=== PATIENT | female | born 1935 | race African-American/Black ===

== ENCOUNTER 2017-02-07 09:51 | Emergency (ER) | payer MEDICAID, MEDICARE ==
[~2017-02-07] VITALS: Ht 152.4 cm; Wt 61.0 kg
[~2017-02-07 09:51] MED LIST: GLIPIZIDE; LIPITOR; MICARDIS; OMEPRAZOLE; PLAVIX
[2017-02-07 11:16] LABS: BASOPHILS % 1.3 % (0.0-2.0); EOSINOPHILS % 1.5 % (0.0-5.0); HEMATOCRIT. 39.5 % (36.0-48.0); HEMOGLOBIN. 12.7 g/dL (12.0-16.0); LYMPHOCYTES % 27.7 % (20.0-50.0); MEAN CORPUSCULAR VOLUME 92.9 fL (81.0-99.0); MEAN PLATELET VOLUME 9.4 fl (7.4-10.4); MONOCYTES % 9.1 % (2.0-8.0); NEUTROPHILS % 60.4 % (40.0-76.0); PLATELET 248 x1000/uL (130-400); RED BLOOD CELL COUNT 4.25 mill/uL (4.2-5.4); RED CELL DISTRIBUTION WIDTH 13.2 % (11.6-14.6)
[2017-02-07 11:24] LABS: PARTIAL THROMBOPLASTIN TIME 26.8 sec (23.4-31.0); PROTHROMBIN TIME 10.6 sec (9.4-11.6)
[2017-02-07 11:34] LABS: CARBON DIOXIDE 26 mEq/L (21-32); CHLORIDE 106 mEq/L (98-107); TROPONIN I < 0.02 ng/mL (0.00-0.04)
[2017-02-07] MEDS ORDERED: TRAMADOL 50MG TABLET PO ONE (14:15)
[2017-02-07 14:25] LABS: CLARITY URINE CLEAR (CLEAR); COLOR URINE YELLOW (YELLOW); KETONES URINE NEGATIVE (NEGATIVE); LEUKOCYTE ESTERASE URINE 2+ (NEGATIVE); NITRITE URINE NEGATIVE (NEGATIVE); OCCULT BLOOD URINE NEGATIVE (NEGATIVE); PH URINE 5.5 (4.5-8.0); PROTEIN URINE NEGATIVE (NEGATIVE); UROBILINOGEN URINE 0.2 E.U./dL (0.2-1.0)
[2017-02-07 16:04] VITALS: BP 142/66
== END 2017-02-07 16:14 | disposition home or self-care (01) ==
LOC: ER 11:20
DX: N39.0 Urinary tract infection, site not specified (principal); R51 Headache; E11.9 Type 2 diabetes mellitus without complications; I10 Essential (primary) hypertension; V89.2XXA Person injured in unspecified motor-vehicle accident, traffic, initial encounter; Y93.89 Activity, other specified; Y92.89 Other specified places as the place of occurrence of the external cause; Y99.8 Other external cause status
CPT/HCPCS: 36415; 70450; 72125; 74022; 80053; 81001; 82962; 83690; 83880; 84484; 85025; 85610; 85730; 93005; 99285

== ENCOUNTER 2017-05-12 02:42 | Inpatient (IN) | payer MEDICARE ==
[~2017-05-12] VITALS: Ht 152.4 cm; Wt 61.2 kg
[~2017-05-12 02:42] MED LIST changes: -PLAVIX; +PLAVIX PO
[2017-05-12] MEDS ORDERED: MAGNESIUM/ALUMINUM HYDROXIDE/SIMETHICONE 30ML UDC PO STA (03:42)
[2017-05-12] MEDS ORDERED: FAMOTIDINE 20MG/2ML VIAL IV STA (03:42)
[2017-05-12 04:21] LABS: HEMATOCRIT. 36.1 % (36.0-48.0); HEMOGLOBIN. 12.2 g/dL (12.0-16.0); LYMPHOCYTES % 13.6 % (20.0-50.0); MEAN CORPUSCULAR HEMOGLOBIN 31.5 pg (28.0-32.0); MEAN CORPUSCULAR VOLUME 93.1 fL (81.0-99.0); MEAN PLATELET VOLUME 9.6 fl (7.4-10.4); MONOCYTES % 8.4 % (2.0-8.0); PLATELET 195 x1000/uL (130-400); RED BLOOD CELL COUNT 3.88 mill/uL (4.2-5.4); RED CELL DISTRIBUTION WIDTH 13.4 % (11.6-14.6)
[2017-05-12 04:40] LABS: CHLORIDE 111 mEq/L (98-107)
[2017-05-12 05:14] LABS: CLARITY URINE CLEAR (CLEAR); COLOR URINE YELLOW (YELLOW); KETONES URINE NEGATIVE (NEGATIVE); LEUKOCYTE ESTERASE URINE 1+ (NEGATIVE); NITRITE URINE NEGATIVE (NEGATIVE); OCCULT BLOOD URINE NEGATIVE (NEGATIVE); PROTEIN URINE NEGATIVE (NEGATIVE); UROBILINOGEN URINE 0.2 E.U./dL (0.2-1.0)
[2017-05-12] MEDS ORDERED: SODIUM CHLORIDE 0.9% 1,000 ML IV SCH (05:31)
[2017-05-12 08:50] VITALS: BP 122/54
[2017-05-12] MEDS ORDERED: SPIR25TA4 PO (10:20)
[2017-05-12] MEDS ORDERED: LOSA50TA20 PO (10:20)
[2017-05-12] MEDS ORDERED: n PO (10:20)
[2017-05-12] MEDS ORDERED: NA PHOS,M-B/NA PHOS,DI-BA ENEMA 118ML PR PRN (11:15)
[2017-05-12] MEDS ORDERED: ONDANSETRON HCL 4MG/2ML VIAL IV PRN (11:15)
[2017-05-12] MEDS ORDERED: MAGNESIUM/ALUMINUM HYDROXIDE/SIMETHICONE 30ML UDC PO PRN (11:15)
[2017-05-12] MEDS ORDERED: ACETAMINOPHEN 650MG/20.3ML UDC GT PRN (11:15)
[2017-05-12] MEDS ORDERED: CLONIDINE 0.1MG TABLET PO PRN (11:15)
[2017-05-12] MEDS ORDERED: DIPHENHYDRAMINE 50MG/ML VIAL IV PRN (11:15)
[2017-05-12] MEDS ORDERED: HYDROCODONE/ACETAMINOPHEN 10/325MG TABLET PO PRN (11:15)
[2017-05-12] MEDS ORDERED: HYDROCODONE/ACETAMINOPHEN 5/325MG TABLET PO PRN (11:15)
[2017-05-12] MEDS ORDERED: GUAIFENESIN 200MG/10ML SUGAR FREE UDC PO PRN (11:15)
[2017-05-12] MEDS ORDERED: DOCUSATE SODIUM 100MG CAPSULE PO PRN (11:15)
[2017-05-12] MEDS ORDERED: IPRATROPIUM/ALBUTEROL 0.5-3(2.5)MG/3ML NEB INH PRN (11:15)
[2017-05-12] MEDS ORDERED: ACETAMINOPHEN 650MG SUPP PR PRN (11:15)
[2017-05-12] MEDS ORDERED: ACETAMINOPHEN 325MG TABLET PO PRN (11:15)
[2017-05-12] MEDS: SODIUM CHLORIDE 0.45% 1,000 ML IV SCH (11:57)
[2017-05-12 12:00] VITALS: BP 132/47
[2017-05-12] MEDS: SODIUM CHLORIDE 0.9% INJ 3ML FLUSH IVF SCH ×2 (14:00→22:00)
[2017-05-12 15:23] LABS: *AMPHETAMINES SCREEN URINE NEGATIVE (NEGATIVE); *BARBITURATES SCREEN URINE NEGATIVE (NEGATIVE); *BENZODIAZEPINES SCREEN URINE NEGATIVE (NEGATIVE); *COCAINE SCREEN URINE NEGATIVE (NEGATIVE); CANNABINOID URINE SCREEN NEGATIVE (NEGATIVE); METHADONE URINE SCREEN NEGATIVE (NEGATIVE); OPIATES URINE SCREEN NEGATIVE (NEGATIVE); PHENCYCLIDINE URINE SCREEN NEGATIVE (NEGATIVE)
[2017-05-12 16:00] VITALS: BP 129/57
[2017-05-12 16:22] LABS: CLARITY URINE CLEAR (CLEAR); COLOR URINE YELLOW (YELLOW); KETONES URINE NEGATIVE (NEGATIVE); LEUKOCYTE ESTERASE URINE 1+ (NEGATIVE); NITRITE URINE NEGATIVE (NEGATIVE); OCCULT BLOOD URINE NEGATIVE (NEGATIVE); PH URINE 5.5 (4.5-8.0); PROTEIN URINE NEGATIVE (NEGATIVE); SPECIFIC GRAVITY URINE 1.008 (1.005-1.030); UROBILINOGEN URINE 0.2 E.U./dL (0.2-1.0)
[2017-05-12] MEDS ORDERED: DEXTROSE 50% WATER 50ML SYRINGE IV PRN (16:45)
[2017-05-12] MEDS: BLOOD SUGAR DIAGNOSTIC STRIP TEST SCH ×2 (17:37→21:00)
[2017-05-12] MEDS: INSULIN LISPRO 100 UNITS/ML SUBCUT SCH ×2 (17:50→21:00)
[2017-05-12 20:00] VITALS: BP_SYST 114; BP_SYST 124; BP_DIAS 47; BP_DIAS 60
[2017-05-12] MEDS: LOSARTAN POTASSIUM 50 MG TABLET PO SCH (21:19)
[2017-05-12] MEDS: CLOPIDOGREL 75MG TABLET PO SCH (21:19)
[2017-05-13] VITALS (8 sets, daily range): BP systolic 110–128; BP diastolic 44–59
[2017-05-13] MEDS: SODIUM CHLORIDE 0.45% 1,000 ML IV SCH (04:10)
[2017-05-13] MEDS: SODIUM CHLORIDE 0.9% INJ 3ML FLUSH IVF SCH ×2 (06:00→17:31)
[2017-05-13 07:12] LABS: BASOPHILS % 1.1 % (0.0-2.0); EOSINOPHILS % 4.9 % (0.0-5.0); HEMATOCRIT. 36.2 % (36.0-48.0); HEMOGLOBIN. 12.2 g/dL (12.0-16.0); LYMPHOCYTES % 27.6 % (20.0-50.0); MEAN CORPUSCULAR VOLUME 91.9 fL (81.0-99.0); MEAN PLATELET VOLUME 9.7 fl (7.4-10.4); MONOCYTES % 10.7 % (2.0-8.0); NEUTROPHILS % 55.7 % (40.0-76.0); PLATELET 216 x1000/uL (130-400); RED BLOOD CELL COUNT 3.94 mill/uL (4.2-5.4); RED CELL DISTRIBUTION WIDTH 13.5 % (11.6-14.6)
[2017-05-13] MEDS: BLOOD SUGAR DIAGNOSTIC STRIP TEST SCH ×3 (07:20→17:20)
[2017-05-13 07:46] LABS: CHLORIDE 110 mEq/L (98-107)
[2017-05-13] MEDS: INSULIN LISPRO 100 UNITS/ML SUBCUT SCH ×3 (07:50→17:32)
[2017-05-13 07:51] LABS: HDL CHOLESTEROL 52 mg/dL (40-59); LDL CHOLESTEROL 68 mg/dL (5-100)
[2017-05-13] MEDS: CLOPIDOGREL 75MG TABLET PO SCH (09:13)
[2017-05-13] MEDS: LOSARTAN POTASSIUM 50 MG TABLET PO SCH (09:13)
[2017-05-13] MEDS ORDERED: PROM25TA13 PO (21:15)
== END 2017-05-13 21:35 | disposition home or self-care (01) | DRG 439 ==
LOC: ER 04:45 → EDBEDREQ 05:26 → EDBEDREQTM 05:50 → EDBEDREQ 05:50 → 6WST 07:09 → ENRESERV 07:09
PROVIDERS: ADMIT Family Medicine; ATTEND Family Medicine
DX: K85.90 Acute pancreatitis without necrosis or infection, unspecified (principal); E44.1 Mild protein-calorie malnutrition; E11.65 Type 2 diabetes mellitus with hyperglycemia; E86.0 Dehydration; E66.9 Obesity, unspecified; I10 Essential (primary) hypertension; Z79.899 Other long term (current) drug therapy; Z68.26 Body mass index [BMI] 26.0-26.9, adult
CPT/HCPCS: 36415; 71045; 74176; 76700; 80053; 80061; 80305; 81003; 82962; 83605; 83690; 84484; 85025; 85610; 93005; 96361; 96374; 99285; J1815; J3490; J7030

== ENCOUNTER 2017-06-17 23:24 | Inpatient (IN) | payer MEDICARE ==
[~2017-06-17] VITALS: Ht 172.7 cm; Wt 62.3 kg
[~2017-06-17 23:24] MED LIST changes: -GLIPIZIDE; -LIPITOR; +LOSA50TA20 PO; -MICARDIS; -OMEPRAZOLE; +PROM25TA13 PO; +SPIR25TA4 PO; +n PO
[2017-06-18] MEDS ORDERED: ONDANSETRON HCL 4MG/2ML VIAL IV STA (00:03)
[2017-06-18] MEDS ORDERED: CLOPIDOGREL 75MG TABLET PO ONE (00:15)
[2017-06-18] MEDS ORDERED: NITROGLYCERIN 0.4MG TABLET SL SL PRN (00:15)
[2017-06-18 00:26] LABS: BASOPHILS % 0.9 % (0.0-2.0); EOSINOPHILS % 3.7 % (0.0-5.0); HEMATOCRIT. 37.5 % (36.0-48.0); HEMOGLOBIN. 12.3 g/dL (12.0-16.0); LYMPHOCYTES % 28.6 % (20.0-50.0); MEAN CORPUSCULAR HEMOGLOBIN 30.4 pg (28.0-32.0); MEAN CORPUSCULAR VOLUME 92.9 fL (81.0-99.0); MEAN PLATELET VOLUME 9.8 fl (7.4-10.4); MONOCYTES % 10.7 % (2.0-8.0); NEUTROPHILS % 56.1 % (40.0-76.0); PLATELET 221 x1000/uL (130-400); RED BLOOD CELL COUNT 4.04 mill/uL (4.2-5.4); RED CELL DISTRIBUTION WIDTH 13.3 % (11.6-14.6)
[2017-06-18 00:29] LABS: CHLORIDE 106 mEq/L (98-107)
[2017-06-18 00:37] LABS: D-DIMER 0.5 mg/L FEU (<0.50); PARTIAL THROMBOPLASTIN TIME 27.3 sec (23.4-31.0); PROTHROMBIN TIME 10.2 sec (9.4-11.6)
[2017-06-18] MEDS ORDERED: MAGNESIUM/ALUMINUM HYDROXIDE/SIMETHICONE 30ML UDC PO ONE (01:15)
[2017-06-18] MEDS ORDERED: FAMOTIDINE 20MG/2ML VIAL IV ONE (01:15)
[2017-06-18 01:16] LABS: COLOR URINE YELLOW (YELLOW); KETONES URINE NEGATIVE (NEGATIVE); LEUKOCYTE ESTERASE URINE TRACE (NEGATIVE); NITRITE URINE NEGATIVE (NEGATIVE); OCCULT BLOOD URINE NEGATIVE (NEGATIVE); PH URINE 5.5 (4.5-8.0); PROTEIN URINE NEGATIVE (NEGATIVE); SPECIFIC GRAVITY URINE 1.009 (1.005-1.030); UROBILINOGEN URINE 0.2 E.U./dL (0.2-1.0)
[2017-06-18 01:44] LABS: CLARITY URINE CLEAR (CLEAR)
[2017-06-18] MEDS ORDERED: DIPHENHYDRAMINE 50MG/ML VIAL IV PRN (01:45)
[2017-06-18] MEDS ORDERED: GUAIFENESIN 200MG/10ML SUGAR FREE UDC PO PRN (01:45)
[2017-06-18] MEDS ORDERED: DOCUSATE SODIUM 100MG CAPSULE PO PRN (01:45)
[2017-06-18] MEDS ORDERED: CLONIDINE 0.1MG TABLET PO PRN (01:45)
[2017-06-18] MEDS ORDERED: IPRATROPIUM/ALBUTEROL 0.5-3(2.5)MG/3ML NEB INH PRN (01:45)
[2017-06-18] MEDS ORDERED: MAGNESIUM/ALUMINUM HYDROXIDE/SIMETHICONE 30ML UDC PO PRN (01:45)
[2017-06-18] MEDS ORDERED: HYDROCODONE/ACETAMINOPHEN 10/325MG TABLET PO PRN (01:45)
[2017-06-18] MEDS ORDERED: LORAZEPAM 0.5MG TABLET PO PRN (01:45)
[2017-06-18] MEDS ORDERED: HYDROCODONE/ACETAMINOPHEN 5/325MG TABLET PO PRN (01:45)
[2017-06-18] MEDS ORDERED: ACETAMINOPHEN 325MG TABLET PO PRN (01:45)
[2017-06-18 06:20] LABS: BASOPHILS % 1.1 % (0.0-2.0); EOSINOPHILS % 4.8 % (0.0-5.0); HEMATOCRIT. 38.3 % (36.0-48.0); HEMOGLOBIN. 12.8 g/dL (12.0-16.0); LYMPHOCYTES % 30.3 % (20.0-50.0); MEAN CORPUSCULAR VOLUME 92.9 fL (81.0-99.0); MEAN PLATELET VOLUME 9.5 fl (7.4-10.4); MONOCYTES % 12.2 % (2.0-8.0); NEUTROPHILS % 51.6 % (40.0-76.0); PLATELET 193 x1000/uL (130-400); RED BLOOD CELL COUNT 4.12 mill/uL (4.2-5.4); RED CELL DISTRIBUTION WIDTH 13.3 % (11.6-14.6)
[2017-06-18 06:26] LABS: CHLORIDE 109 mEq/L (98-107)
[2017-06-18] MEDS: DEXT 5%/0.45% NACL 1000ML 1,000 ML IV SCH ×2 (06:38→12:30)
[2017-06-18 07:02] LABS: LDL CHOLESTEROL 66 mg/dL (5-100)
[2017-06-18 07:03] LABS: HDL CHOLESTEROL 54 mg/dL (40-59)
[2017-06-18 07:05] LABS: T4 FREE 0.96 ng/dL (0.76-1.46)
[2017-06-18] MEDS ORDERED: ATOR10TA69 MT (08:52)
[2017-06-18 08:54] VITALS: BP 136/50
[2017-06-18 09:00] VITALS: BP 136/50
[2017-06-18] MEDS ORDERED: ONDANSETRON HCL 4MG/2ML VIAL IV PRN (09:00)
[2017-06-18] MEDS: LOSARTAN POTASSIUM 25 MG TABLET PO SCH (11:30)
[2017-06-18 12:00] VITALS: BP 95/43
[2017-06-18] MEDS: ENOXAPARIN 40MG/0.4ML SYR SUBCUT SCH (12:29)
[2017-06-18 16:00] VITALS: BP 110/70
[2017-06-18 20:00] VITALS: BP 105/43
[2017-06-18] MEDS: ATORVASTATIN CALCIUM 10MG TABLET PO SCH (21:09)
[2017-06-19] VITALS (7 sets, daily range): BP systolic 113–120; BP diastolic 45–75
[2017-06-19] MEDS: DEXT 5%/0.45% NACL 1000ML 1,000 ML IV SCH ×2 (06:34→10:15)
[2017-06-19 06:52] LABS: EOSINOPHILS % 4.3 % (0.0-5.0); HEMOGLOBIN. 12.4 g/dL (12.0-16.0); LYMPHOCYTES % 35.4 % (20.0-50.0); MEAN CORPUSCULAR VOLUME 92.7 fL (81.0-99.0); MEAN PLATELET VOLUME 9.8 fl (7.4-10.4); MONOCYTES % 12.5 % (2.0-8.0); NEUTROPHILS % 46.8 % (40.0-76.0); PLATELET 209 x1000/uL (130-400); RED BLOOD CELL COUNT 3.99 mill/uL (4.2-5.4); RED CELL DISTRIBUTION WIDTH 13.3 % (11.6-14.6)
[2017-06-19 07:31] LABS: CHLORIDE 109 mEq/L (98-107)
[2017-06-19 07:40] LABS: AMYLASE 158 IU/L (25-115)
[2017-06-19] MEDS: LOSARTAN POTASSIUM 25 MG TABLET PO SCH (10:12)
[2017-06-19] MEDS: ENOXAPARIN 40MG/0.4ML SYR SUBCUT SCH (10:13)
[2017-06-19] MEDS: ATORVASTATIN CALCIUM 10MG TABLET PO SCH (20:59)
[2017-06-20 04:00] VITALS: BP 111/50
[2017-06-20] MEDS: DEXT 5%/0.45% NACL 1000ML 1,000 ML IV SCH (05:04)
[2017-06-20 07:24] LABS: EOSINOPHILS % 3.9 % (0.0-5.0); HEMOGLOBIN. 12.1 g/dL (12.0-16.0); LYMPHOCYTES % 31.3 % (20.0-50.0); MEAN CORPUSCULAR HEMOGLOBIN 30.4 pg (28.0-32.0); MEAN PLATELET VOLUME 9.6 fl (7.4-10.4); MONOCYTES % 11.5 % (2.0-8.0); NEUTROPHILS % 52.3 % (40.0-76.0); PLATELET 208 x1000/uL (130-400); RED BLOOD CELL COUNT 3.98 mill/uL (4.2-5.4); RED CELL DISTRIBUTION WIDTH 13.1 % (11.6-14.6)
[2017-06-20 07:56] LABS: CHLORIDE 108 mEq/L (98-107)
[2017-06-20 08:00] VITALS: BP 113/54
[2017-06-20 08:14] LABS: AMYLASE 161 IU/L (25-115)
[2017-06-20] MEDS: ENOXAPARIN 40MG/0.4ML SYR SUBCUT SCH (09:37)
[2017-06-20] MEDS: LOSARTAN POTASSIUM 25 MG TABLET PO SCH (09:37)
[2017-06-20 12:00] VITALS: BP 104/45
[2017-06-20 13:45] VITALS: BP 104/45
== END 2017-06-20 15:10 | disposition home or self-care (01) | DRG 302 ==
LOC: ER 23:24 → 5WST 06-18 01:22 → EDBEDREQ 06-18 01:27 → ENRESERV 06-18 07:03
PROVIDERS: ADMIT Family Medicine Adult Medicine; ATTEND Family Medicine Adult Medicine
DX: I25.119 Atherosclerotic heart disease of native coronary artery with unspecified angina pectoris (principal); K85.90 Acute pancreatitis without necrosis or infection, unspecified; I42.9 Cardiomyopathy, unspecified; I50.20 Unspecified systolic (congestive) heart failure; I11.0 Hypertensive heart disease with heart failure; E03.9 Hypothyroidism, unspecified; E11.9 Type 2 diabetes mellitus without complications; E78.5 Hyperlipidemia, unspecified; I25.2 Old myocardial infarction; Z79.02 Long term (current) use of antithrombotics/antiplatelets; Z82.49 Family history of ischemic heart disease and other diseases of the circulatory system; Z86.73 Personal history of transient ischemic attack (TIA), and cerebral infarction without residual deficits; Z87.891 Personal history of nicotine dependence; Z95.5 Presence of coronary angioplasty implant and graft; Z79.899 Other long term (current) drug therapy
CPT/HCPCS: 36415; 71045; 74181; 80048; 80053; 80061; 80076; 81003; 82150; 82787; 83036; 83690; 83735; 83880; 84439; 84443; 84481; 84484; 85025; 85379; 85610; 85730; 93005; 93306; 96374; 97162; 99285; J1650; J2405; J3490

== ENCOUNTER 2018-02-14 09:22 | Inpatient (IN) | payer MEDICARE ==
[2018-02-14] VITALS (17 sets, daily range): BP systolic 98–161; BP diastolic 30–87
[~2018-02-14] VITALS: Ht 154.9 cm; Wt 59.0 kg
[~2018-02-14 09:22] MED LIST changes: +ATOR10TA69 MT; -PROM25TA13 PO; -SPIR25TA4 PO; +SPIR25TA6 PO; -n PO
[2018-02-14] MEDS ORDERED: LIDOCAINE HCL 1% 20ML VIAL (Pyxis) INJ ONE (11:17)
[2018-02-14] MEDS ORDERED: IODIXANOL 320MG/ML 100 ML BOTTLE IV ONE ×2 (11:18→11:52)
[2018-02-14] MEDS ORDERED: FENTANYL CITRATE/PF 50MCG/ML 2ML VIAL ONE (11:22)
[2018-02-14] MEDS ORDERED: MIDAZOLAM HCL 2 MG/2 ML VIAL ONE (11:22)
[2018-02-14] MEDS ORDERED: IOHEXOL-300 100 ML BOTTLE ONE (11:43)
[2018-02-14] MEDS ORDERED: CLOP75TA33 PO (11:46)
[2018-02-14] MEDS ORDERED: ATOR10TA69 PO (11:46)
[2018-02-14] MEDS ORDERED: SITA1TAB6 PO (11:46)
[2018-02-14] MEDS ORDERED: CARV3.1242 PO (11:46)
[2018-02-14] MEDS ORDERED: DIGO125T82 PO (11:46)
[2018-02-14] MEDS ORDERED: INSU100I28 SQ (11:46)
[2018-02-14] MEDS ORDERED: CLOPIDOGREL 75MG TABLET ONE (12:22)
[2018-02-14] MEDS ORDERED: ATROPINE SULFATE 1MG/10ML SYR IV PRN (13:30)
[2018-02-14] MEDS ORDERED: ACETAMINOPHEN 325MG TABLET PO PRN ×2 (13:30→13:45)
[2018-02-14] MEDS ORDERED: ONDANSETRON HCL 4MG/2ML INJ IV PRN (13:30)
[2018-02-14] MEDS ORDERED: DEXTROSE 50% WATER 50ML SYRINGE IV PRN (13:45)
[2018-02-14] MEDS ORDERED: HYDROCODONE/ACETAMINOPHEN 5/325MG TABLET PO PRN (13:45)
[2018-02-14] MEDS ORDERED: CLONIDINE 0.1MG TABLET PO PRN (13:45)
[2018-02-14] MEDS ORDERED: NITROGLYCERIN 50MCG/ML 10ML VIAL (CATH LAB) IV ONE (14:58)
[2018-02-14] MEDS ORDERED: HEPARIN SODIUM 1,000 UNIT/1ML VIAL IV ONE (15:37)
[2018-02-14] MEDS: BLOOD SUGAR DIAGNOSTIC STRIP TEST SCH ×2 (16:36→21:39)
[2018-02-14] MEDS: INSULIN LISPRO 100 UNITS/ML SUBCUT SCH ×3 (16:53→21:47)
[2018-02-14] MEDS ORDERED: DIGOXIN 125MCG TABLET PO SCH (18:00)
[2018-02-14 18:44] LABS: HEMATOCRIT 39.4 % (36.0-48.0); HEMOGLOBIN 12.7 g/dL (12.0-16.0); MEAN CORPUSCULAR HEMOGLOBIN 30.2 pg (28.0-32.0); MEAN CORPUSCULAR VOLUME 93.5 fL (81.0-99.0); PLATELET 201 x1000/uL (130-400); RED BLOOD CELL COUNT 4.22 mill/uL (4.2-5.4); RED CELL DISTRIBUTION WIDTH 13.5 % (11.6-14.6)
[2018-02-14 18:54] LABS: CHLORIDE 105 mEq/L (98-107)
[2018-02-14 19:30] LABS: DIGOXIN 0.1 ng/mL (0.9-2.0)
[2018-02-14] MEDS ORDERED: ATORVASTATIN CALCIUM 20MG TABLET PO SCH (21:00)
[2018-02-14] MEDS: CARVEDILOL 3.125 MG TABLET PO SCH (21:39)
[2018-02-15] VITALS (8 sets, daily range): BP systolic 111–137; BP diastolic 41–93
[2018-02-15] MEDS: BLOOD SUGAR DIAGNOSTIC STRIP TEST SCH ×2 (06:35→11:58)
[2018-02-15 07:09] LABS: CHLORIDE 106 mEq/L (98-107)
[2018-02-15 07:16] LABS: BASOPHILS % 1.1 % (0.0-2.0); EOSINOPHILS % 1.6 % (0.0-5.0); HEMATOCRIT. 36.6 % (36.0-48.0); LDL CHOLESTEROL 95 mg/dL (5-100); LYMPHOCYTES % 24.6 % (20.0-50.0); MEAN CORPUSCULAR HEMOGLOBIN 30.3 pg (28.0-32.0); MEAN CORPUSCULAR VOLUME 92.3 fL (81.0-99.0); MEAN PLATELET VOLUME 10.2 fl (7.4-10.4); MONOCYTES % 7.5 % (2.0-8.0); NEUTROPHILS % 65.2 % (40.0-76.0); PLATELET 222 x1000/uL (130-400); RED BLOOD CELL COUNT 3.97 mill/uL (4.2-5.4); RED CELL DISTRIBUTION WIDTH 13.1 % (11.6-14.6)
[2018-02-15 07:17] LABS: HDL CHOLESTEROL 55 mg/dL (40-59)
[2018-02-15 07:29] LABS: DIGOXIN 0.3 ng/mL (0.9-2.0)
[2018-02-15] MEDS: INSULIN LISPRO 100 UNITS/ML SUBCUT SCH ×2 (08:09→12:26)
[2018-02-15] MEDS: CARVEDILOL 3.125 MG TABLET PO SCH (08:10)
[2018-02-15] MEDS ORDERED: ASPIRIN 81MG EC TABLET PO SCH (09:00)
[2018-02-15] MEDS ORDERED: CLOPIDOGREL 75MG TABLET PO SCH (09:00)
== END 2018-02-15 14:06 | disposition home or self-care (01) | DRG 246 ==
LOC: CCL 09:22 → 3WST 09:23
PROVIDERS: ADMIT Specialist; ATTEND Specialist
PROC: 4A023N7 Measurement of Cardiac Sampling and Pressure, Left Heart, Percutaneous Approach (ICD-10-PCS; principal; 2018-02-14)
PROC: 027135Z Dilation of Coronary Artery, Two Arteries with Two Drug-eluting Intraluminal Devices, Percutaneous Approach (ICD-10-PCS; 2018-02-14)
PROC: B2111ZZ Fluoroscopy of Multiple Coronary Arteries using Low Osmolar Contrast (ICD-10-PCS; 2018-02-14)
PROC: B2151ZZ Fluoroscopy of Left Heart using Low Osmolar Contrast (ICD-10-PCS; 2018-02-14)
PROC: B41F1ZZ Fluoroscopy of Right Lower Extremity Arteries using Low Osmolar Contrast (ICD-10-PCS; 2018-02-14)
DX: I25.10 Atherosclerotic heart disease of native coronary artery without angina pectoris (principal); I50.43 Acute on chronic combined systolic (congestive) and diastolic (congestive) heart failure; I42.9 Cardiomyopathy, unspecified; E11.9 Type 2 diabetes mellitus without complications; E78.00 Pure hypercholesterolemia, unspecified; I11.0 Hypertensive heart disease with heart failure; Z95.5 Presence of coronary angioplasty implant and graft
CPT/HCPCS: 36415; 80048; 80061; 80162; 82962; 83036; 83735; 85027; 85347; 92928; 92929; 93005; 93458; C1760; C1769; C1874; C1887; J1644; J1815; J2250; J3010; J3490; Q9967

== ENCOUNTER 2018-05-01 14:22 | Inpatient (IN) | payer MEDICARE ==
[~2018-05-01] VITALS: Ht 154.9 cm; Wt 69.0 kg
[~2018-05-01 14:22] MED LIST changes: -ATOR10TA69 MT; +ATOR10TA69 PO; +CARV3.1242 PO; +CLOP75TA33 PO; +DIGO125T82 PO; +INSU100I28 SQ; -LOSA50TA20 PO; -PLAVIX PO; +SITA1TAB6 PO; -SPIR25TA6 PO
[2018-05-01 17:41] LABS: BASOPHILS % 0.8 % (0.0-2.0); EOSINOPHILS % 3.6 % (0.0-5.0); HEMATOCRIT. 43.2 % (36.0-48.0); HEMOGLOBIN. 14.1 g/dL (12.0-16.0); MEAN CORPUSCULAR HEMOGLOBIN 31.2 pg (28.0-32.0); MEAN CORPUSCULAR VOLUME 95.4 fL (81.0-99.0); MEAN PLATELET VOLUME 9.9 fl (7.4-10.4); MONOCYTES % 10.2 % (2.0-8.0); NEUTROPHILS % 49.4 % (40.0-76.0); PLATELET 186 x1000/uL (130-400); RED BLOOD CELL COUNT 4.52 mill/uL (4.2-5.4)
[2018-05-01 17:47] LABS: CHLORIDE 110 mEq/L (98-107)
[2018-05-01] MEDS ORDERED: DEXTROSE 50% WATER 50ML SYRINGE IV ONE (18:45)
[2018-05-01] MEDS ORDERED: ASPIRIN 81MG TABLET PO ONE (18:45)
[2018-05-01] MEDS ORDERED: INSULIN REGULAR (HUMULIN R) 300UNITS/3ML IV ONE (18:45)
[2018-05-01] MEDS: NITROGLYCERIN 0.4MG TABLET SL SL PRN ×2 (19:05→19:37)
[2018-05-01 20:11] LABS: PROTHROMBIN TIME 10.4 sec (9.1-11.1)
[2018-05-01] MEDS ORDERED: CARV6.2548 MT (23:58)
[2018-05-02] VITALS (7 sets, daily range): BP systolic 111–141; BP diastolic 46–68
[2018-05-02] MEDS ORDERED: METF-414 MT
[2018-05-02] MEDS ORDERED: SACU1TAB7 MT (00:01)
[2018-05-02] MEDS ORDERED: DEXTROSE 50% WATER 50ML SYRINGE IV PRN (00:45)
[2018-05-02] MEDS ORDERED: NITROGLYCERIN 0.4MG TABLET SL SL PRN (01:00)
[2018-05-02] MEDS: BLOOD SUGAR DIAGNOSTIC STRIP TEST SCH ×4 (05:45→21:00)
[2018-05-02] MEDS: INSULIN LISPRO 100 UNITS/ML SUBCUT SCH ×4 (06:20→21:33)
[2018-05-02 08:13] LABS: CHLORIDE 107 mEq/L (98-107)
[2018-05-02] MEDS: ASPIRIN 81MG EC TABLET PO SCH (09:59)
[2018-05-02] MEDS: CARVEDILOL 6.25 MG TABLET PO SCH ×2 (09:59→21:31)
[2018-05-02] MEDS: ENOXAPARIN 40MG/0.4ML SYR SUBCUT SCH (10:00)
[2018-05-02] MEDS: CLOPIDOGREL 75MG TABLET PO SCH (10:00)
[2018-05-02] MEDS: MAGNESIUM OXIDE 400MG TABLET PO SCH (10:00)
[2018-05-02] MEDS ORDERED: ACETAMINOPHEN 325MG TABLET PO PRN (14:15)
[2018-05-02] MEDS ORDERED: ATORVASTATIN CALCIUM 10MG TABLET PO SCH (21:00)
[2018-05-03] VITALS: BP 118/57
[2018-05-03 04:00] VITALS: BP 129/57
[2018-05-03 06:34] LABS: BASOPHILS % 0.6 % (0.0-2.0); EOSINOPHILS % 3.1 % (0.0-5.0); HEMATOCRIT. 37.5 % (36.0-48.0); HEMOGLOBIN. 12.2 g/dL (12.0-16.0); LYMPHOCYTES % 37.2 % (20.0-50.0); MEAN CORPUSCULAR HEMOGLOBIN 30.8 pg (28.0-32.0); MEAN CORPUSCULAR VOLUME 94.3 fL (81.0-99.0); MEAN PLATELET VOLUME 9.9 fl (7.4-10.4); NEUTROPHILS % 47.1 % (40.0-76.0); PLATELET 222 x1000/uL (130-400); RED BLOOD CELL COUNT 3.98 mill/uL (4.2-5.4); RED CELL DISTRIBUTION WIDTH 13.2 % (11.6-14.6)
[2018-05-03] MEDS: INSULIN LISPRO 100 UNITS/ML SUBCUT SCH ×3 (06:39→17:31)
[2018-05-03] MEDS: BLOOD SUGAR DIAGNOSTIC STRIP TEST SCH ×3 (06:39→16:53)
[2018-05-03 07:22] LABS: CHLORIDE 109 mEq/L (98-107)
[2018-05-03 08:00] VITALS: BP 119/53
[2018-05-03] MEDS: CARVEDILOL 6.25 MG TABLET PO SCH (09:50)
[2018-05-03] MEDS: CLOPIDOGREL 75MG TABLET PO SCH (09:50)
[2018-05-03] MEDS: ASPIRIN 81MG EC TABLET PO SCH (09:50)
[2018-05-03] MEDS: ENOXAPARIN 40MG/0.4ML SYR SUBCUT SCH (09:50)
[2018-05-03] MEDS: MAGNESIUM OXIDE 400MG TABLET PO SCH (09:50)
[2018-05-03 12:00] VITALS: BP 123/49
[2018-05-03 15:20] LABS: AMYLASE 119 IU/L (25-115)
[2018-05-03 16:00] VITALS: BP 123/61
[2018-05-03 17:44] VITALS: BP 123/61
== END 2018-05-03 18:25 | disposition home or self-care (01) | DRG 311 ==
LOC: ER 14:22 → 5WST 20:59 → EDBEDREQTM 21:02 → EDBEDREQ 21:02 → ENRESERV 21:50
PROVIDERS: ADMIT Internal Medicine; ATTEND Internal Medicine
DX: I24.9 Acute ischemic heart disease, unspecified (principal); I50.22 Chronic systolic (congestive) heart failure; E11.65 Type 2 diabetes mellitus with hyperglycemia; E78.00 Pure hypercholesterolemia, unspecified; E78.5 Hyperlipidemia, unspecified; E87.5 Hyperkalemia; I11.0 Hypertensive heart disease with heart failure; I25.110 Atherosclerotic heart disease of native coronary artery with unstable angina pectoris; I49.1 Atrial premature depolarization; K21.9 Gastro-esophageal reflux disease without esophagitis; Z82.49 Family history of ischemic heart disease and other diseases of the circulatory system; Z87.891 Personal history of nicotine dependence; Z95.5 Presence of coronary angioplasty implant and graft; Z79.84 Long term (current) use of oral hypoglycemic drugs; Z79.4 Long term (current) use of insulin; Z79.899 Other long term (current) drug therapy; I25.2 Old myocardial infarction
CPT/HCPCS: 36415; 71045; 80048; 82150; 82962; 83735; 83880; 84443; 84484; 93005; 93306; 96374; 99285; J1650; J1815

== ENCOUNTER → 2019-02-20 | Outpatient (CLI) | payer MEDICARE ==
[~2019-02-20] MED LIST changes: -CARV3.1242 PO; +CARV6.2548 MT; -DIGO125T82 PO; +METF-414 MT; +SACU1TAB7 MT; -SITA1TAB6 PO
== END | disposition home or self-care (01) ==
LOC: RAD 12:47
PROVIDERS: ATTEND Neurological Surgery
DX: I67.82 Cerebral ischemia (principal); G31.89 Other specified degenerative diseases of nervous system
CPT/HCPCS: 70551

== ENCOUNTER 2019-04-21 10:09 | Inpatient (IN) | payer MEDICARE ==
[~2019-04-21] VITALS: Ht 152.4 cm; Wt 61.2 kg
[2019-04-21 13:48] LABS: CHLORIDE 110 mEq/L (98-107)
[2019-04-21 13:52] LABS: BASOPHILS % 0.8 % (0.0-2.0); HEMATOCRIT. 41.4 % (36.0-48.0); HEMOGLOBIN. 13.8 g/dL (12.0-16.0); LYMPHOCYTES % 33.1 % (20.0-50.0); MEAN CORPUSCULAR HEMOGLOBIN 31.8 pg (28.0-32.0); MEAN CORPUSCULAR VOLUME 95.4 fL (81.0-99.0); MEAN PLATELET VOLUME 9.7 fl (7.4-10.4); MONOCYTES % 10.4 % (2.0-8.0); NEUTROPHILS % 52.7 % (40.0-76.0); PLATELET 228 x1000/uL (130-400); RED BLOOD CELL COUNT 4.34 mill/uL (4.2-5.4); RED CELL DISTRIBUTION WIDTH 13.6 % (11.6-14.6)
[2019-04-21] MEDS ORDERED: CARVEDILOL 6.25 MG TABLET PO SCH (17:00)
[2019-04-21] MEDS ORDERED: ACETAMINOPHEN 325MG TABLET PO PRN (17:15)
[2019-04-21] MEDS ORDERED: ASPIRIN 325MG EC TABLET PO ONE (17:15)
[2019-04-21] MEDS ORDERED: ATORVASTATIN CALCIUM 40MG TABLET PO NR (17:15)
[2019-04-21] MEDS ORDERED: DEXTROSE 50% WATER 50ML SYRINGE IV PRN (17:15)
[2019-04-21] MEDS ORDERED: CLONIDINE 0.1MG TABLET PO PRN (17:15)
[2019-04-21] MEDS ORDERED: NITROGLYCERIN 0.4MG TABLET SL SL PRN (17:15)
[2019-04-21] MEDS ORDERED: ONDANSETRON HCL 4MG/2ML INJ IV PRN (17:15)
[2019-04-21] MEDS ORDERED: HYDRALAZINE 20MG/ML VIAL IV PRN (17:15)
[2019-04-21] MEDS: BLOOD SUGAR DIAGNOSTIC STRIP TEST SCH ×2 (18:58→21:00)
[2019-04-21] MEDS: INSULIN LISPRO 100 UNITS/ML SUBCUT SCH ×2 (19:00→21:00)
[2019-04-21] MEDS ORDERED: INSULIN GLARGINE UD 100 UNITS/ML SYR SUBCUT SCH (22:00)
[2019-04-21 22:15] VITALS: BP 137/68
[2019-04-21] MEDS: HEPARIN 5000 UNITS/ML VIAL SUBCUT SCH (23:08)
[2019-04-21 23:15] VITALS: BP 137/68
[2019-04-22] VITALS: BP 142/50
[2019-04-22] MEDS: SACUBITRIL/VALSARTAN 49MG/51MG TABLET PO SCH ×3 (00:09→23:46)
[2019-04-22] MEDS: INSULIN GLARGINE UD 100 UNITS/ML SYR SUBCUT SCH ×3 (00:10→21:46)
[2019-04-22 04:00] VITALS: BP 111/48
[2019-04-22 05:42] LABS: BASOPHILS % 0.9 % (0.0-2.0); HEMATOCRIT. 35.9 % (36.0-48.0); LYMPHOCYTES % 34.9 % (20.0-50.0); MEAN CORPUSCULAR HEMOGLOBIN 31.4 pg (28.0-32.0); MEAN CORPUSCULAR VOLUME 94.2 fL (81.0-99.0); MEAN PLATELET VOLUME 9.8 fl (7.4-10.4); MONOCYTES % 10.9 % (2.0-8.0); NEUTROPHILS % 49.3 % (40.0-76.0); PLATELET 203 x1000/uL (130-400); RED BLOOD CELL COUNT 3.82 mill/uL (4.2-5.4); RED CELL DISTRIBUTION WIDTH 13.4 % (11.6-14.6)
[2019-04-22 05:57] LABS: CHLORIDE 108 mEq/L (98-107)
[2019-04-22 06:13] LABS: LDL CHOLESTEROL 74 mg/dL (5-100)
[2019-04-22 06:14] LABS: HDL CHOLESTEROL 48 mg/dL (40-59)
[2019-04-22] MEDS: BLOOD SUGAR DIAGNOSTIC STRIP TEST SCH ×4 (06:46→21:00)
[2019-04-22] MEDS: INSULIN LISPRO 100 UNITS/ML SUBCUT SCH ×4 (07:49→21:46)
[2019-04-22 08:00] VITALS: BP 145/63
[2019-04-22] MEDS: CLOPIDOGREL 75MG TABLET PO SCH (08:12)
[2019-04-22] MEDS: HEPARIN 5000 UNITS/ML VIAL SUBCUT SCH ×2 (08:13→21:42)
[2019-04-22] MEDS: CARVEDILOL 6.25 MG TABLET PO SCH ×2 (08:13→21:50)
[2019-04-22] MEDS ORDERED: INFLUENZA VIRUS VACCINE(AFLURIA) 0.5ML SYR IM ONE (10:00)
[2019-04-22] MEDS ORDERED: REGADENOSON 0.4 MG/5 ML IV NR (10:30)
[2019-04-22 12:00] VITALS: BP 126/58
[2019-04-22] MEDS ORDERED: REGADENOSON 0.4 MG/5 ML IV ONE (14:49)
[2019-04-22 16:00] VITALS: BP 135/51
[2019-04-22 20:00] VITALS: BP 118/55
[2019-04-22] MEDS ORDERED: ATORVASTATIN CALCIUM 10MG TABLET PO SCH (23:00)
[2019-04-23] VITALS: BP 132/48
[2019-04-23 04:00] VITALS: BP 124/50
[2019-04-23 05:52] LABS: BASOPHILS % 0.9 % (0.0-2.0); EOSINOPHILS % 2.7 % (0.0-5.0); HEMATOCRIT. 37.4 % (36.0-48.0); HEMOGLOBIN. 12.5 g/dL (12.0-16.0); LYMPHOCYTES % 26.3 % (20.0-50.0); MEAN CORPUSCULAR HEMOGLOBIN 31.4 pg (28.0-32.0); MEAN CORPUSCULAR VOLUME 93.7 fL (81.0-99.0); MEAN PLATELET VOLUME 9.9 fl (7.4-10.4); MONOCYTES % 9.6 % (2.0-8.0); NEUTROPHILS % 60.5 % (40.0-76.0); PLATELET 219 x1000/uL (130-400); RED BLOOD CELL COUNT 3.99 mill/uL (4.2-5.4); RED CELL DISTRIBUTION WIDTH 13.5 % (11.6-14.6)
[2019-04-23 05:59] LABS: CHLORIDE 108 mEq/L (98-107)
[2019-04-23] MEDS: BLOOD SUGAR DIAGNOSTIC STRIP TEST SCH ×2 (06:44→12:44)
[2019-04-23] MEDS: INSULIN LISPRO 100 UNITS/ML SUBCUT SCH ×2 (06:45→12:56)
[2019-04-23 08:00] VITALS: BP 124/57
[2019-04-23] MEDS: CARVEDILOL 6.25 MG TABLET PO SCH (08:12)
[2019-04-23] MEDS: CLOPIDOGREL 75MG TABLET PO SCH (08:12)
[2019-04-23] MEDS: SACUBITRIL/VALSARTAN 49MG/51MG TABLET PO SCH (08:13)
[2019-04-23] MEDS: HEPARIN 5000 UNITS/ML VIAL SUBCUT SCH (08:13)
[2019-04-23] MEDS: INSULIN GLARGINE UD 100 UNITS/ML SYR SUBCUT SCH (10:00)
[2019-04-23 12:00] VITALS: BP 115/47
[2019-04-23 14:03] VITALS: BP 115/47
== END 2019-04-23 14:41 | disposition home or self-care (01) | DRG 206 ==
LOC: ER 10:09 → 6WST 16:59 → ENRESERV 20:38
PROVIDERS: ADMIT Internal Medicine; ATTEND Internal Medicine
DX: M94.0 Chondrocostal junction syndrome [Tietze] (principal); I42.9 Cardiomyopathy, unspecified; I25.10 Atherosclerotic heart disease of native coronary artery without angina pectoris; E11.65 Type 2 diabetes mellitus with hyperglycemia; E78.00 Pure hypercholesterolemia, unspecified; E78.5 Hyperlipidemia, unspecified; E11.51 Type 2 diabetes mellitus with diabetic peripheral angiopathy without gangrene; I10 Essential (primary) hypertension; J45.909 Unspecified asthma, uncomplicated; I25.2 Old myocardial infarction; Z79.02 Long term (current) use of antithrombotics/antiplatelets; Z79.4 Long term (current) use of insulin; Z79.899 Other long term (current) drug therapy; Z82.49 Family history of ischemic heart disease and other diseases of the circulatory system; Z95.5 Presence of coronary angioplasty implant and graft; Z79.84 Long term (current) use of oral hypoglycemic drugs
CPT/HCPCS: 36415; 71045; 78452; 80053; 80061; 82962; 83036; 83735; 83880; 84484; 85025; 93005; 93017; 99285; A9500; J1644; J1815; J2785

== ENCOUNTER 2021-04-12 07:09 | Emergency (ER) | payer MEDICARE ==
[~2021-04-12] VITALS: Ht 149.9 cm; Wt 61.0 kg
[2021-04-12] MEDS ORDERED: ACETAMINOPHEN 325MG TABLET PO ONE (08:00)
[2021-04-12 09:39] LABS: CLARITY URINE CLEAR (CLEAR); COLOR URINE YELLOW (YELLOW); KETONES URINE NEGATIVE (NEGATIVE); LEUKOCYTE ESTERASE URINE 1+ (NEGATIVE); NITRITE URINE NEGATIVE (NEGATIVE); OCCULT BLOOD URINE 1+ (NEGATIVE); PROTEIN URINE NEGATIVE (NEGATIVE); SPECIFIC GRAVITY URINE 1.012 (1.005-1.030); UROBILINOGEN URINE 0.2 E.U./dL (0.2-1.0)
[2021-04-12] MEDS ORDERED: LEVO250T58 PO (09:59)
[2021-04-12] MEDS ORDERED: TOPUD PO (10:03)
[2021-04-12 10:08] VITALS: BP 145/71
== END 2021-04-12 10:10 | disposition home or self-care (01) ==
LOC: ER 07:09
DX: R10.31 Right lower quadrant pain (principal); E11.9 Type 2 diabetes mellitus without complications; I25.2 Old myocardial infarction; Z98.61 Coronary angioplasty status; Z79.4 Long term (current) use of insulin
CPT/HCPCS: 71101; 81003; 99284

== ENCOUNTER 2021-12-23 10:16 | Inpatient (IN) | payer MEDICARE ==
[~2021-12-23] VITALS: Ht 152.4 cm; Wt 62.4 kg
[~2021-12-23 10:16] MED LIST changes: +LEVO250T74 PO; +TOPUD PO
[2021-12-23] MEDS ORDERED: ASPIRIN 81MG TABLET PO ONE (11:30)
[2021-12-23] MEDS ORDERED: NITROGLYCERIN 0.4MG TABLET SL SL PRN (11:30)
[2021-12-23 14:36] LABS: BASOPHILS % 0.8 % (0.0-2.0); EOSINOPHILS % 2.7 % (0.0-5.0); HEMATOCRIT. 38.1 % (36.0-48.0); HEMOGLOBIN. 12.4 g/dL (12.0-16.0); LYMPHOCYTES % 36.5 % (20.0-50.0); MEAN CORPUSCULAR HEMOGLOBIN 30.8 pg (28.0-32.0); MEAN CORPUSCULAR VOLUME 94.3 fL (81.0-99.0); MEAN PLATELET VOLUME 10.1 fl (7.4-10.4); MONOCYTES % 10.7 % (2.0-8.0); NEUTROPHILS % 49.3 % (40.0-76.0); PLATELET 232 x1000/uL (130-400); RED BLOOD CELL COUNT 4.04 mill/uL (4.2-5.4); RED CELL DISTRIBUTION WIDTH 14.3 % (11.6-14.6)
[2021-12-23 14:45] LABS: CHLORIDE 111 mEq/L (98-107)
[2021-12-23 14:59] LABS: D-DIMER 20.08 mg/L FEU (<0.50); INR 0.9; PARTIAL THROMBOPLASTIN TIME 22.5 sec (23.4-31.0); PROTHROMBIN TIME 9.7 sec (9.6-11.0)
[2021-12-23] MEDS ORDERED: ENOXAPARIN 60MG/0.6ML SYR SUBCUT ONE (15:15)
[2021-12-23] MEDS: ASPIRIN 81MG EC TABLET PO SCH (16:00)
[2021-12-23] MEDS ORDERED: CLONIDINE 0.1MG TABLET PO PRN (16:00)
[2021-12-23 17:40] VITALS: BP 140/90
[2021-12-23 18:00] VITALS: BP 152/62
[2021-12-23] MEDS: NITROGLYCERIN OINT 1GM/INCH UDPKT TD SCH (19:06)
[2021-12-23] MEDS: CLOPIDOGREL 75MG TABLET PO SCH (19:06)
[2021-12-23 20:00] VITALS: BP 140/92
[2021-12-23 21:53] VITALS: BP 135/84
[2021-12-23] MEDS: BLOOD SUGAR DIAGNOSTIC STRIP TEST SCH (21:53)
[2021-12-23] MEDS: ATORVASTATIN CALCIUM 20MG TABLET PO SCH (21:56)
[2021-12-23] MEDS: AMLODIPINE 5MG TABLET PO SCH (21:57)
[2021-12-23] MEDS ORDERED: DEXTROSE 50% WATER 50ML SYRINGE IV PRN (22:30)
[2021-12-23] MEDS ORDERED: MORPHINE SULFATE 2 MG/ML CPJ (NOT FOR IM USE) IV PRN (22:30)
[2021-12-23] MEDS: INSULIN LISPRO 100 UNITS/ML SUBCUT SCH (22:56)
[2021-12-24] VITALS (7 sets, daily range): BP systolic 114–147; BP diastolic 46–69
[2021-12-24] MEDS: NITROGLYCERIN OINT 1GM/INCH UDPKT TD SCH ×4 (01:17→19:33)
[2021-12-24] MEDS: BLOOD SUGAR DIAGNOSTIC STRIP TEST SCH ×4 (06:25→20:56)
[2021-12-24 06:52] LABS: BASOPHILS % 0.7 % (0.0-2.0); EOSINOPHILS % 3.8 % (0.0-5.0); HEMATOCRIT. 33.5 % (36.0-48.0); LYMPHOCYTES % 27.9 % (20.0-50.0); MEAN CORPUSCULAR HEMOGLOBIN 30.9 pg (28.0-32.0); MEAN CORPUSCULAR VOLUME 93.9 fL (81.0-99.0); MEAN PLATELET VOLUME 10.3 fl (7.4-10.4); MONOCYTES % 12.2 % (2.0-8.0); NEUTROPHILS % 55.4 % (40.0-76.0); PLATELET 201 x1000/uL (130-400); RED BLOOD CELL COUNT 3.57 mill/uL (4.2-5.4); RED CELL DISTRIBUTION WIDTH 13.7 % (11.6-14.6)
[2021-12-24 06:59] LABS: CHLORIDE 108 mEq/L (98-107)
[2021-12-24 07:13] LABS: HDL CHOLESTEROL 49 mg/dL (40-59); LDL CHOLESTEROL 60 mg/dL (5-100)
[2021-12-24] MEDS: INSULIN LISPRO 100 UNITS/ML SUBCUT SCH ×4 (08:13→20:56)
[2021-12-24] MEDS: ASPIRIN 81MG EC TABLET PO SCH (08:15)
[2021-12-24] MEDS: ENOXAPARIN 30MG/0.3ML SYR SUBCUT SCH (08:15)
[2021-12-24] MEDS: CLOPIDOGREL 75MG TABLET PO SCH (08:16)
[2021-12-24] MEDS: AMLODIPINE 5MG TABLET PO SCH ×2 (08:16→20:56)
[2021-12-24] MEDS ORDERED: SODIUM CHLORIDE 0.45% 1,000 ML IV ONE (10:00)
[2021-12-24] MEDS ORDERED: ENOXAPARIN 60MG/0.6ML SYR SUBCUT ONE (10:15)
[2021-12-24] MEDS ORDERED: NALOXONE HCL 0.4MG/ML VIAL IV PRN (14:15)
[2021-12-24] MEDS: IRON SUCROSE COMPLEX 100 MG/5 ML ML IV SCH (14:32)
[2021-12-24] MEDS ORDERED: IPRATROPIUM/ALBUTEROL 0.5-3(2.5)MG/3ML NEB HHN PRN (16:00)
[2021-12-24] MEDS ORDERED: ACETAMINOPHEN 325MG TABLET PO PRN (19:15)
[2021-12-24] MEDS: ATORVASTATIN CALCIUM 20MG TABLET PO SCH (20:56)
[2021-12-25] VITALS: BP 127/54
[2021-12-25] MEDS: NITROGLYCERIN OINT 1GM/INCH UDPKT TD SCH ×4 (00:27→18:14)
[2021-12-25 04:00] VITALS: BP 128/59
[2021-12-25] MEDS: BLOOD SUGAR DIAGNOSTIC STRIP TEST SCH ×4 (06:03→21:37)
[2021-12-25 06:58] LABS: BASOPHILS % 0.8 % (0.0-2.0); EOSINOPHILS % 4.2 % (0.0-5.0); HEMATOCRIT. 35.1 % (36.0-48.0); HEMOGLOBIN. 11.6 g/dL (12.0-16.0); LYMPHOCYTES % 30.1 % (20.0-50.0); MEAN CORPUSCULAR VOLUME 93.6 fL (81.0-99.0); MEAN PLATELET VOLUME 10.3 fl (7.4-10.4); MONOCYTES % 13.1 % (2.0-8.0); NEUTROPHILS % 51.8 % (40.0-76.0); PLATELET 220 x1000/uL (130-400); RED BLOOD CELL COUNT 3.75 mill/uL (4.2-5.4); RED CELL DISTRIBUTION WIDTH 13.9 % (11.6-14.6)
[2021-12-25 07:44] VITALS: BP 137/60
[2021-12-25] MEDS: CLOPIDOGREL 75MG TABLET PO SCH (08:10)
[2021-12-25] MEDS: ASPIRIN 81MG EC TABLET PO SCH (08:10)
[2021-12-25] MEDS: AMLODIPINE 5MG TABLET PO SCH ×2 (08:10→21:34)
[2021-12-25] MEDS: ENOXAPARIN 30MG/0.3ML SYR SUBCUT SCH (08:10)
[2021-12-25] MEDS: INSULIN LISPRO 100 UNITS/ML SUBCUT SCH ×4 (08:11→21:37)
[2021-12-25 11:14] LABS: CHLORIDE 108 mEq/L (98-107)
[2021-12-25] MEDS ORDERED: FUROSEMIDE 40MG/4ML VIAL IVP SCH (11:17)
[2021-12-25 11:43] VITALS: BP 148/70
[2021-12-25] MEDS: IRON SUCROSE COMPLEX 100 MG/5 ML ML IV SCH (13:19)
[2021-12-25 16:00] VITALS: BP 151/53
[2021-12-25] MEDS: BUDESONIDE 0.25MG/2ML NEB HHN SCH (17:15)
[2021-12-25] MEDS: FUROSEMIDE 40MG/4ML VIAL IVP SCH (18:12)
[2021-12-25] MEDS: IPRATROPIUM/ALBUTEROL 0.5-3(2.5)MG/3ML NEB HHN SCH (19:49)
[2021-12-25 20:00] VITALS: BP 137/67
[2021-12-25] MEDS: ATORVASTATIN CALCIUM 20MG TABLET PO SCH (21:34)
[2021-12-26] VITALS (11 sets, daily range): BP systolic 115–140; BP diastolic 43–68
[2021-12-26] MEDS: NITROGLYCERIN OINT 1GM/INCH UDPKT TD SCH ×4 (00:03→18:00)
[2021-12-26] MEDS: IPRATROPIUM/ALBUTEROL 0.5-3(2.5)MG/3ML NEB HHN SCH ×4 (02:00→21:45)
[2021-12-26] MEDS: BLOOD SUGAR DIAGNOSTIC STRIP TEST SCH ×3 (06:58→21:39)
[2021-12-26] MEDS: INSULIN LISPRO 100 UNITS/ML SUBCUT SCH ×4 (07:20→21:42)
[2021-12-26 07:21] LABS: BASOPHILS % 0.7 % (0.0-2.0); EOSINOPHILS % 2.8 % (0.0-5.0); HEMOGLOBIN. 12.2 g/dL (12.0-16.0); LYMPHOCYTES % 25.4 % (20.0-50.0); MEAN CORPUSCULAR HEMOGLOBIN 30.8 pg (28.0-32.0); MEAN CORPUSCULAR VOLUME 93.1 fL (81.0-99.0); MEAN PLATELET VOLUME 10.2 fl (7.4-10.4); MONOCYTES % 12.5 % (2.0-8.0); NEUTROPHILS % 58.6 % (40.0-76.0); PLATELET 223 x1000/uL (130-400); RED BLOOD CELL COUNT 3.97 mill/uL (4.2-5.4); RED CELL DISTRIBUTION WIDTH 13.7 % (11.6-14.6)
[2021-12-26] MEDS: ASPIRIN 81MG EC TABLET PO SCH (08:08)
[2021-12-26] MEDS: ENOXAPARIN 30MG/0.3ML SYR SUBCUT SCH (08:08)
[2021-12-26] MEDS: CLOPIDOGREL 75MG TABLET PO SCH (08:09)
[2021-12-26] MEDS: AMLODIPINE 5MG TABLET PO SCH ×2 (08:20→21:39)
[2021-12-26] MEDS: FUROSEMIDE 40MG/4ML VIAL IVP SCH (08:21)
[2021-12-26] MEDS: BUDESONIDE 0.25MG/2ML NEB HHN SCH (09:00)
[2021-12-26] MEDS ORDERED: HEPARIN 1000 UNITS/ML 10ML ONE (11:00)
[2021-12-26] MEDS ORDERED: IODIXANOL 320MG/ML 100 ML BOTTLE IV ONE (11:00)
[2021-12-26] MEDS ORDERED: LIDOCAINE HCL/PF 1% 10 MG/ML 5ML VIAL ONE (11:00)
[2021-12-26] MEDS ORDERED: MIDAZOLAM HCL 2 MG/2 ML VIAL ONE (11:15)
[2021-12-26] MEDS ORDERED: FENTANYL CITRATE/PF 50MCG/ML 2ML VIAL ONE (11:15)
[2021-12-26] MEDS ORDERED: ASPIRIN/SOD BICARB/CITRIC ACID 324MG TAB EFF ONE (11:28)
[2021-12-26] MEDS ORDERED: DILTIAZEM HCL 5MG/ML 5ML VIAL IV ONE (11:47)
[2021-12-26] MEDS ORDERED: POTASSIUM CHLORIDE 20MEQ TABLET SR PO NR (12:45)
[2021-12-26] MEDS: IRON SUCROSE COMPLEX 100 MG/5 ML ML IV SCH (13:35)
[2021-12-26] MEDS: ATORVASTATIN CALCIUM 20MG TABLET PO SCH (21:38)
[2021-12-27] VITALS (7 sets, daily range): BP systolic 99–147; BP diastolic 39–70
[2021-12-27] MEDS: NITROGLYCERIN OINT 1GM/INCH UDPKT TD SCH ×4 (00:14→18:00)
[2021-12-27] MEDS: IPRATROPIUM/ALBUTEROL 0.5-3(2.5)MG/3ML NEB HHN SCH ×3 (02:58→13:32)
[2021-12-27] MEDS: BLOOD SUGAR DIAGNOSTIC STRIP TEST SCH ×3 (07:00→17:00)
[2021-12-27] MEDS: AMLODIPINE 5MG TABLET PO SCH (07:59)
[2021-12-27] MEDS: CARVEDILOL 3.125 MG TABLET PO SCH ×3 (07:59→17:14)
[2021-12-27] MEDS: ASPIRIN 81MG EC TABLET PO SCH (08:05)
[2021-12-27] MEDS: CLOPIDOGREL 75MG TABLET PO SCH (08:06)
[2021-12-27] MEDS: INSULIN LISPRO 100 UNITS/ML SUBCUT SCH ×3 (08:06→17:00)
[2021-12-27 08:46] LABS: BG DEOXYHEMOGLOBIN 6.1 % (0.0-5.0); BG FRACTION INSPIRED OXYGEN 21; BG METHEMOGLOBIN 0.3 % (0.0-1.5); BG OXYGEN SATURATION 93.8 % (92.0-98.5); BG OXYHEMOGLOBIN 92.6 % (94.0-97.0); BG PCO2 37.1 mmHg (35.0-45.0); BG PH 7.429 (7.350-7.450); BG PO2 68.6 mmHg (75.0-100.0); BG SAMPLE SITE RIGHT RADIAL; BG TOTAL HEMOGLOBIN 12.7 g/dL (12.0-18.0); BG VENT MODE ROOM AIR
[2021-12-27] MEDS ORDERED: FUROSEMIDE 40MG/4ML VIAL IVP SCH (09:00)
[2021-12-27] MEDS: BUDESONIDE 0.25MG/2ML NEB HHN SCH (13:30)
[2021-12-27] MEDS: IRON SUCROSE COMPLEX 100 MG/5 ML ML IV SCH ×2 (14:00→16:33)
[2021-12-27] MEDS ORDERED: AMLO5TAB88 PO (14:10)
== END 2021-12-27 23:37 | disposition home health service (06) | DRG 286 ==
LOC: ER 10:36 → 3WST 15:33 → ENRESERV 16:03
PROVIDERS: ADMIT Internal Medicine; ATTEND Internal Medicine
PROC: 4A023N7 Measurement of Cardiac Sampling and Pressure, Left Heart, Percutaneous Approach (ICD-10-PCS; principal; 2021-12-26)
PROC: B2111ZZ Fluoroscopy of Multiple Coronary Arteries using Low Osmolar Contrast (ICD-10-PCS; 2021-12-26)
DX: I25.119 Atherosclerotic heart disease of native coronary artery with unspecified angina pectoris (principal); I50.23 Acute on chronic systolic (congestive) heart failure; J96.00 Acute respiratory failure, unspecified whether with hypoxia or hypercapnia; E44.1 Mild protein-calorie malnutrition; I31.39 Other pericardial effusion (noninflammatory); I25.5 Ischemic cardiomyopathy; E78.00 Pure hypercholesterolemia, unspecified; I11.0 Hypertensive heart disease with heart failure; J43.9 Emphysema, unspecified; E78.5 Hyperlipidemia, unspecified; J45.909 Unspecified asthma, uncomplicated; E11.65 Type 2 diabetes mellitus with hyperglycemia; J43.2 Centrilobular emphysema; I25.2 Old myocardial infarction; Z87.891 Personal history of nicotine dependence; Z68.26 Body mass index [BMI] 26.0-26.9, adult; Z79.82 Long term (current) use of aspirin; Z95.5 Presence of coronary angioplasty implant and graft; Z79.899 Other long term (current) drug therapy
CPT/HCPCS: 36415; 36600; 71045; 71275; 78582; 80048; 80053; 80061; 82375; 82805; 82962; 83036; 83735; 83880; 84443; 84484; 85025; 85044; 85379; 86038; 86431; 93005; 93306; 93458; 93970; 94640; 99285; A9558; C1769; C1887; C1893; J1644; J1650; J1815; J1940; J2250; J3010; J3490; J7626; Q9967

== ENCOUNTER 2022-06-16 12:53 | Emergency (ER) | payer MEDICARE, OTHER ==
[~2022-06-16] VITALS: Ht 152.4 cm; Wt 59.0 kg
[~2022-06-16 12:53] MED LIST changes: +AMLO5TAB88 PO
[2022-06-16 14:41] LABS: HEMATOCRIT 35.9 % (36.0-48.0); HEMOGLOBIN 11.7 g/dL (12.0-16.0); MEAN CORPUSCULAR HEMOGLOBIN 30.6 pg (28.0-32.0); PLATELET 215 x1000/uL (130-400); RED BLOOD CELL COUNT 3.82 mill/uL (4.2-5.4); RED CELL DISTRIBUTION WIDTH 13.9 % (11.6-14.6)
[2022-06-16 14:49] LABS: CHLORIDE 111 mEq/L (98-107)
[2022-06-16] MEDS ORDERED: BENZ100C86 MT (15:56)
[2022-06-16] MEDS ORDERED: IBUP-2029 MT (15:56)
[2022-06-16] MEDS ORDERED: IBUPROFEN 600MG TABLET PO ONE (16:00)
[2022-06-16 16:09] VITALS: BP 144/57
== END 2022-06-16 16:21 | disposition home or self-care (01) ==
LOC: ER 13:56
DX: S00.12XA Contusion of left eyelid and periocular area, initial encounter (principal); J06.9 Acute upper respiratory infection, unspecified; E11.9 Type 2 diabetes mellitus without complications; I25.2 Old myocardial infarction; I10 Essential (primary) hypertension; X58.XXXA Exposure to other specified factors, initial encounter; Y93.89 Activity, other specified; Y92.89 Other specified places as the place of occurrence of the external cause; Y99.8 Other external cause status
CPT/HCPCS: 36415; 71045; 80053; 84484; 85027; 93005; 99285

== ENCOUNTER 2023-07-08 18:26 | Emergency (ER) | payer OTHER ==
[~2023-07-08] VITALS: Ht 160 cm; Wt 60.0 kg
[~2023-07-08 18:26] MED LIST changes: +AMOX1TAB16 PO; +APIX5TAB PO; +ASPI-1160 PO; +ATOR20TA PO; +AZIT500T8 PO; +BENZ100C86 MT; +IBUP-2029 MT; +MED4 MT; +MONT-46 PO; +NITR0.4T49 SL; +SPIR25TA PO
[2023-07-08 18:29] VITALS: O2SAT 96
[2023-07-08] MEDS: ACETAMINOPHEN 325MG TABLET PO ONE (22:11)
[2023-07-08 23:06] LABS: BASOPHILS % 0.2 % (0.0-2.0); EOSINOPHILS % 0.1 % (0.0-5.0); HEMATOCRIT. 40.6 % (36.0-48.0); HEMOGLOBIN. 13.4 g/dL (12.0-16.0); LYMPHOCYTES % 7.4 % (20.0-50.0); MEAN CORPUSCULAR HEMOGLOBIN 30.9 pg (28.0-32.0); MEAN CORPUSCULAR VOLUME 93.8 fL (81.0-99.0); MEAN PLATELET VOLUME 10.1 fl (7.4-10.4); NEUTROPHILS % 86.3 % (40.0-76.0); PLATELET 258 x1000/uL (130-400); PROTHROMBIN TIME 11.2 sec (9.6-11.0); RED BLOOD CELL COUNT 4.33 mill/uL (4.2-5.4); RED CELL DISTRIBUTION WIDTH 14.6 % (11.6-14.6)
[2023-07-08] MEDS ORDERED: OXYM30SP26 BOTHNSTRLS (23:22)
[2023-07-08 23:33] VITALS: BP 109/72; PULSE 99; RESP 18; TEMP 98.5
== END 2023-07-08 23:34 | disposition home or self-care (01) ==
LOC: ER 18:26
DX: R04.0 Epistaxis (principal); E11.9 Type 2 diabetes mellitus without complications; I11.0 Hypertensive heart disease with heart failure; I25.2 Old myocardial infarction; I50.9 Heart failure, unspecified; Z98.890 Other specified postprocedural states
CPT/HCPCS: 36415; 85025; 86850; 86900; 99283

== ENCOUNTER 2023-09-23 16:07 | Emergency (ER) | payer OTHER ==
[~2023-09-23] VITALS: Ht 154.9 cm; Wt 61.2 kg
[~2023-09-23 16:07] MED LIST changes: +OXYM30SP26 BOTHNSTRLS
[2023-09-23 16:25] VITALS: O2SAT 98
[2023-09-23 16:52] LABS: HEMATOCRIT. 38.8 % (36.0-48.0); HEMOGLOBIN. 12.5 g/dL (12.0-16.0); MEAN CORPUSCULAR HEMOGLOBIN 30.8 pg (28.0-32.0); MEAN CORPUSCULAR HGB CONC 32.2 g/dL (31.0-37.0); MEAN CORPUSCULAR VOLUME 95.6 fL (81.0-99.0); MEAN PLATELET VOLUME 10.8 fl (7.4-10.4); PLATELET 196 x1000/uL (130-400); RED BLOOD CELL COUNT 4.06 mill/uL (4.2-5.4); RED CELL DISTRIBUTION WIDTH 13.9 % (11.6-14.6)
[2023-09-23 16:58] LABS: DIFFERENTIAL COMMENT 1
[2023-09-23 17:01] LABS: CARBON DIOXIDE 25 mEq/L (21-32); CHLORIDE 104 mEq/L (98-107); POTASSIUM 3.9 mEq/L (3.5-5.1); PROTHROMBIN TIME 10.9 sec (9.6-11.0); SODIUM 135 mEq/L (136-145)
[2023-09-23 17:02] LABS: CALCIUM 9.6 mg/dL (8.7-10.4)
[2023-09-23 17:07] LABS: CREATININE 1.2 mg/dL (0.6-1.0); GLUCOSE 223 mg/dL (70-105); UREA NITROGEN BLOOD 19 mg/dL (9-23)
[2023-09-23 17:08] LABS: TROPONIN I HIGH SENSITIVITY 10 ng/L (3.0-34)
[2023-09-23 17:31] LABS: PLATELET ESTIMATE NORMAL
[2023-09-23 17:56] LABS: CLARITY URINE CLEAR (CLEAR); COLOR URINE YELLOW (YELLOW); GLUCOSE URINE NEGATIVE (NEGATIVE); KETONES URINE NEGATIVE (NEGATIVE); LEUKOCYTE ESTERASE URINE TRACE (NEGATIVE); NITRITE URINE NEGATIVE (NEGATIVE); OCCULT BLOOD URINE TRACE (NEGATIVE); PH URINE 5.5 (4.5-8.0); PROTEIN URINE NEGATIVE (NEGATIVE); SPECIFIC GRAVITY URINE 1.009 (1.005-1.030); UROBILINOGEN URINE 0.2 E.U./dL (0.2-1.0)
[2023-09-23] MEDS: SODIUM CHLORIDE 0.9% 1,000 ML IV ONE (18:05)
[2023-09-23 18:31] LABS: RBC URINE 0-2 /hpf (0-2); SQUAMOUS EPITHELIAL CELL URINE FEW /lpf (RARE/1+)
[2023-09-23 18:32] LABS: BACTERIA URINE 1+
[2023-09-23 18:39] VITALS: BP 127/61; PULSE 95; RESP 22; TEMP 98.7
== END 2023-09-23 18:51 | disposition home or self-care (01) ==
LOC: ER 16:07
DX: U07.1 COVID-19 (principal); R09.81 Nasal congestion; I11.0 Hypertensive heart disease with heart failure; I50.9 Heart failure, unspecified; E11.9 Type 2 diabetes mellitus without complications; Z79.899 Other long term (current) drug therapy
CPT/HCPCS: 99285; 71045; 87426; 80048; 81003; 83605; 85025; 85610; 87040; 87086; 84484; 87804 ×2; 36415; 84145; 93005; J7030